=== PATIENT | female | born 1975 | race African-American/Black ===

== ENCOUNTER 2023-11-02 02:35 | Emergency (ER) | payer BC, OTHER ==
--- NOTE | 2023-11-02 03:40 | ED ---
Headache HPI - General Chief Complaint: Headache Stated Complaint: Headache, elevated BP Time Seen by Provider: 11/02/23 03:07 Limitations: no limitations - History of Present Illness Initial Comments: 48-year-old female presenting with chief complaint of headache. Headache has been ongoing for the last 4 days. Patient has history of migraines and states that this feels similar. Located primarily in the occipital region and over the sinuses. She denies any significant nasal congestion or discharge. She took Excedrin Migraine with little to no relief. No vision or hearing changes. No nausea or vomiting. No numbness, tingling, weakness. No neck pain. No injury or trauma. - Related Data Previous Rx's Medication Instructions Recorded Acetaminophen-Codeine 300-30mg 1 each PO Q6H PRN #20 tablet 03/24/14 [Tylenol #3] Ibuprofen [Motrin] 600 mg PO Q6HR PRN #30 tab 03/24/14 Ondansetron Odt [Zofran ODT] 4 mg PO Q8HR PRN #10 tab 03/24/14 Ibuprofen [Motrin] 600 mg PO Q6HR PRN #20 tab 12/19/14 Orphenadrine [Norflex] 100 mg PO Q12H #10 tablet.er 12/19/14 Allergies Allergy/AdvReac Type Severity Reaction Status Date / Time vancomycin AdvReac Nausea & Verified 11/02/23 03:05 Vomiting & Diarrhea Review of Systems ROS Statement: Those systems with pertinent positive or pertinent negative responses have been documented in the HPI. ROS Other: All systems not noted in ROS Statement are negative. Past Medical History Past Medical History: No Reported History History of Any Multi-Drug Resistant Organisms: None Reported Past Surgical History: Section, Hysterectomy Past Psychological History: No Psychological Hx Reported Smoking Status: Never smoker Past Alcohol Use History: None Reported Past Drug Use History: None Reported General Exam Limitations: no limitations General appearance: alert, in no apparent distress Head exam: Present: atraumatic, normocephalic Eye exam: Present: normal appearance, EOMI Neck exam: Present: normal inspection. Absent: meningismus Respiratory exam: Absent: respiratory distress Cardiovascular Exam: Present: regular rate Neurological exam: Present: alert, oriented X3 Expanded Eye Response: (4) open spontaneously Motor Response: (6) obeys commands Verbal Response: (5) oriented Hai Total: 15 Psychiatric exam: Present: normal affect, normal mood Skin exam: Present: warm, dry Course Vital Signs 11/02/23 03:02 Pulse Rate 78 Respiratory 20 Rate Blood Pressure 158/89 O2 Sat by Pulse 97 Oximetry Medical Decision Making - Medical Decision Making Was pt. sent in by a medical professional or institution (, [facility], [facility], urgent care, hospital, or usp...) When possible be specific @ -No Did you speak to anyone other than the patient for history (EMS, parent, family, police, friend...)? What history was obtained from this source @ -No Did you review nursing and triage notes (agree or disagree)? Why? @ -I reviewed and agree with nursing and triage notes Were old charts reviewed (outside hosp., previous admission, EMS record, old EKG, old radiological studies, urgent care reports/EKG's, usp records)? Report findings @ -No old charts were reviewed Differential Diagnosis (chest pain, altered mental status, abdominal pain women, abdominal pain men, vaginal bleeding, weakness, fever, dyspnea, syncope, headache, dizziness, GI bleed, back pain, seizure, CVA, palpatations, mental health, musculoskeletal)? @ -MDM Differential Headache: Migraine, tension, cluster, carbon monoxide, central venous thrombosis, pension karma temporal arteritis, acute closure glaucoma, intercranial hemorrhage, mastoiditis, sinusitis, head injury this is not meant to be an all-inclusive list. EKG interpreted by me (3pts min.). @ -As above X-rays interpreted by me (1pt min.). @ -None done CT interpreted by me (1pt min.). @ -None done U/S interpreted by me (1pt. min.). @ -None done What testing was considered but not performed or refused? (CT, X-rays, U/S, labs)? Why? @ -None What meds were considered but not given or refused? Why? @ -None Did you discuss the management of the patient with other professionals (professionals i.e. , [facility], [facility], lab, RT, psych nurse, social service manager, coil winder, teacher, unarmed security officer, employment evaluator/case manager)? Give summary @ -No Was smoking cessation discussed for >3mins.? @ -No Was critical care preformed (if so, how long)? @ -No Were there social determinants of health that impacted care today? How? (Homelessness, low income, unemployed, alcoholism, drug addiction, transportation, low edu. Level, literacy, decrease access to med. care, residential, rehab)? @ -No Was there de-escalation of care discussed even if they declined (Discuss DNR or withdrawal of care, Hospice)? DNR status @ -No What co-morbidities impacted this encounter? (DM, HTN, Smoking, COPD, CAD, Cancer, CVA, ARF, Chemo, Hep., AIDS, mental health diagnosis, sleep apnea, morbid obesity)? @ -None Was patient admitted / discharged? Hospital course, mention meds given and [facility] [place], prescriptions, significant lab abnormalities, going to OR and other pertinent info. @ -48-year-old female presenting with chief complaint of headache. Patient has history of migraines, this feels similar. History and physical exam are conducted. Patient is treated with migraine cocktail. On reassessment she reports significant improvement in her symptoms. Patient states that she was having some urinary frequency this evening, UA shows no evidence of infectious process or bleeding. 4 Plex swab is sent, patient would like to be discharged home and follow-up on results. Discharged. Follow-up with PCP. Report back to ER with any new or worsening symptoms. Discussed return parameters and answered all questions. Patient conveyed verbal understanding and agreed to the plan. I discussed this case in detail with my attending Dr. Ovalle Undiagnosed new problem with uncertain prognosis? @ -No Drug Therapy requiring intensive monitoring for toxicity (Heparin, Nitro, Insulin, Cardizem)? @ -No Were any procedures done? @ -No Diagnosis/symptom? @ -Headache Acute, or Chronic, or Acute on Chronic? @ -Acute Uncomplicated (without systemic symptoms) or Complicated (systemic symptoms)? @ -Uncomplicated Side effects of treatment? @ -No Exacerbation, Progression, or Severe Exacerbation? @ -No Poses a threat to life or bodily function? How? (Chest pain, [place], OR, pneumonia, PE, COPD, DKA, ARF, appy, cholecystitis, CVA, Diverticulitis, Homicidal, Suicidal, threat to staff... and all critical care pts) @ -Unlikely - Lab Data Lab Results 11/02/23 Range/Units 03:45 Urine Color Colorless Urine Appearance Clear (Clear) Urine pH 5.5 (5.0-8.0) Ur Specific [place] 1.010 (1.001-1.035) Urine Protein Negative (Negative) Urine Glucose (UA) Negative (Negative) Urine Ketones Negative (Negative) Urine Blood Negative (Negative) Urine Nitrite Negative (Negative) Urine Bilirubin Negative (Negative) Urine Urobilinogen <2.0 (<2.0) mg/dL Ur Leukocyte Esterase Negative (Negative) Disposition Clinical Impression: Headache Disposition: HOME SELF-CARE Condition: Good Instructions (If sedation given, give patient instructions): Acute Headache (ED) Additional Instructions: Follow-up with your PCP. Report back to ER with any new or worsening symptoms. Is patient prescribed a controlled substance at d/c from ED?: No Referrals: Gennaro Asif DO [Primary Care Provider] - 1-2 days Time of Disposition: 04:27
[2023-11-02] MEDS: KETOROLAC 15 MG/ML 1 ML VIAL IVP STA (03:42)
[2023-11-02] MEDS: DEXAMETHASONE SOD PHOSPHATE 10 MG/ML 1 ML VIAL IVP STA (03:43)
[2023-11-02] MEDS: SODIUM CHLORIDE 0.9% 1,000 ML IV STA (03:43)
[2023-11-02] MEDS: diphenhydrAMINE 50 MG/ML 1 ML VIAL IVP STA (03:43)
[2023-11-02 04:13] LABS: Appearance,Urine Clear (Clear); Bilirubin,Urine Negative (Negative); Blood,Urine Negative (Negative); Color,Urine Colorless; Glucose,Urine (UA) Negative (Negative); Ketones,Urine Negative (Negative); Leukocyte Esterase,Urine Negative (Negative); Nitrite,Urine Negative (Negative); PH, Urine 5.5 (5.0-8.0); Protein,Urine Negative (Negative); Urobilinogen,Urine <2.0 mg/dL (<2.0)
[2023-11-02 08:05] VITALS: BP 162/83; PULSE 67; RESP 18
== END 2023-11-02 06:07 | disposition home or self-care (01) ==
LOC: EC 02:35
DX: R51.9 Headache, unspecified (principal); Z88.1 Allergy status to other antibiotic agents
CPT/HCPCS: 99283; 96374; 96375; 96361; 81003; 81025; 87636; J1200; J1885

== ENCOUNTER → 2023-11-20 | Outpatient (CLI) | payer BC ==
--- NOTE | 2023-11-23 13:22 | MM ---
Reason for Exam: Screening (asymptomatic). Last mammogram was performed 9 year(s) and 11 month(s) ago. Patient History: Menarche at age 15. First Full-Term at age 27. Hysterectomy at age 38. Patient has history of breast feeding. Hormonal Contraceptives for 3 months. Risk Values: Shaunna 5 year model risk: 0.8%. NCI Lifetime model risk: 7.0%. Prior Study Comparison: 12/15/2013 Bilateral Screening Mammogram, [facility]. Tissue Density: The breasts are extremely dense, which lowers the sensitivity of mammography. Findings: Analyzed By CAD. There is no suspicious group of microcalcifications or new suspicious mass in either breast. Overall Assessment: Negative, BI-RAD 1 Management: Screening Mammogram of both breasts in 1 year. . Patient should continue monthly self-breast exams. A clinical breast exam by your physician is recommended on an annual basis. This exam should not preclude additional follow-up of suspicious palpable abnormalities. Note on Shaunna scores and lifetime risk: 1. A Shaunna score greater than 3% is considered moderate risk. If this is the case, consider specialist referral to assess eligibility for a risk reducing agent. 2. If overall lifetime risk for the development of breast cancer is 20% or higher, the patient may qualify for future screening with alternating mammogram and breast MRI. Electronically signed and approved by: Rm Bran M.D. Radiologis
== END | disposition home or self-care (01) ==
LOC: RADMAMWWP 15:58
PROVIDERS: ATTEND Obstetrics & Gynecology
DX: Z12.31 Encounter for screening mammogram for malignant neoplasm of breast (principal)
CPT/HCPCS: 77063; 77067

== ENCOUNTER 2024-08-14 09:21 | Emergency (ER) | payer BC ==
[2024-08-14 09:41] VITALS: RESP 22
--- NOTE | 2024-08-14 09:43 | ED ---
Recheck HPI - General Chief Complaint: Recheck/Abnormal Lab/Rx Stated Complaint: inhaled laundry soap Time Seen by Provider: 08/14/24 09:28 Source: patient, RN notes reviewed Mode of arrival: ambulatory Limitations: no limitations - History of Present Illness Initial Comments: This is a 49-year-old female who presents to the emergency department for conc erns of inhaling laundry soap. States that she uses powder laundry detergent and when she went to open her washing machine smelled the clothes to see if they were clean or not. She realized the load had not actually run, causing her to inhale the powder that was still on the clothing. She initially felt like she had burning in her nose, however this has since subsided. Denies any chest pain or shortness of breath. - Related Data Previous Rx's Medication Instructions Recorded Acetaminophen-Codeine 300-30mg 1 each PO Q6H PRN #20 tablet 03/24/14 [Tylenol #3] Ibuprofen [Motrin] 600 mg PO Q6HR PRN #30 tab 03/24/14 Ondansetron Odt [Zofran ODT] 4 mg PO Q8HR PRN #10 tab 03/24/14 Ibuprofen [Motrin] 600 mg PO Q6HR PRN #20 tab 12/19/14 Orphenadrine [Norflex] 100 mg PO Q12H #10 tablet.er 12/19/14 Allergies Allergy/AdvReac Type Severity Reaction Status Date / Time vancomycin AdvReac Nausea & Verified 08/14/24 09:24 Vomiting & Diarrhea Review of Systems ROS Statement: Those systems with pertinent positive or pertinent negative responses have been documented in the HPI. ROS Other: All systems not noted in ROS Statement are negative. Past Medical History Past Medical History: No Reported History History of Any Multi-Drug Resistant Organisms: None Reported Past Surgical History: Section, Hysterectomy Past Psychological History: No Psychological Hx Reported Smoking Status: Never smoker Past Alcohol Use History: None Reported Past Drug Use History: None Reported General Exam Limitations: no limitations General appearance: alert, in no apparent distress Head exam: Present: atraumatic, normocephalic, normal inspection ENT exam: Present: normal exam, normal oropharynx, mucous membranes moist Respiratory exam: Present: normal lung sounds bilaterally. Absent: respiratory distress, wheezes, rales, rhonchi, stridor Cardiovascular Exam: Present: regular rate, normal rhythm, normal heart sounds. Absent: systolic murmur, diastolic murmur, rubs, gallop, clicks Neurological exam: Present: alert, oriented X3, CN II-XII intact Psychiatric exam: Present: normal affect, normal mood Skin exam: Present: warm, dry, intact, normal color. Absent: rash Course Vital Signs 08/14/24 08/14/24 08/14/24 09:22 09:28 10:19 Temperature 98 F 98.1 F Pulse Rate 109 H 82 Respiratory 18 22 22 Rate Blood Pressure 170/83 146/80 O2 Sat by Pulse 97 99 Oximetry Medical Decision Making - Medical Decision Making This is a 49 year old female who presents to the emergency department for laundry detergent inhalation. Was pt. sent in by a medical professional or institution? @ -No Did you speak to anyone other than the patient for history? @ -No Did you review nursing and triage notes? @ -Yes, and I agree, it is accurate with regards to the patient's symptoms. Were old charts reviewed? @ -No Differential Diagnosis? @ -Nasal burn, nasal irritation, pharyngitis, sinusitis, this is not meant to be an all-inclusive list. EKG interpreted by me (3pts min.)? @ -Not obtained X-rays interpreted by me (1pt min.)? @ -Not obtained CT interpreted by me (1pt min.)? @ -Not obtained U/S interpreted by me (1pt. min.)? @ -Not obtained What testing was considered but not performed? (CT, X-rays, U/S, labs)? Why? @ -None What meds were considered but not given? Why? @ -None Did you discuss the management of the patient with other professionals? @ -No Did you reconcile home meds? @ -No Was smoking cessation discussed for >3mins.? @ -No Was critical care preformed (if so, how long)? @ -No Were there social determinants of health that impacted care today? How? (Homelessness, low income, unemployed, alcoholism, drug addiction, transportation, low edu. Level, literacy, decrease access to med. care, group home, rehab)? @ -No Was there de-escalation of care discussed even if they declined? (Discuss DNR or withdrawal of care, Hospice)? @ -No What co-morbidities impacted this encounter? (DM, HTN, Smoking, COPD, CAD, Cancer, CVA, Hep., AIDS, mental health diagnosis, sleep apnea, morbid obesity)? @ -None Was patient admitted / discharged? @ -Discharged. By the time the patient had arrived to the emergency department, her symptoms had largely subsided. She did bring her laundry detergent with her and the nursing staff contacted poison control, who advised that there are not any toxic or caustic ingredients in this and as long as she was feeling okay, she can be discharged home. States that her symptoms had improved. We discussed saline nasal spray or a Neti pot if she feels like she needs to rinse her sinuses out. Otherwise she can follow-up with her primary care provider on an outpatient basis. Patient discharged home in stable condition. Case discussed with ED attending Dr. Coker. Return precautions reviewed in depth, the patient is instructed to return to the emergency department with any new, worsening, or concerning symptoms. Patient verbalized understanding. Undiagnosed new problem with uncertain prognosis? @ -None Drug Therapy requiring intensive monitoring for toxicity (Heparin, Nitro, Insulin, Cardizem)? @ -None Were any procedures done? @ -None Diagnosis/symptom? @ -Accidental inhalation of a substance Acute, or Chronic, or Acute on Chronic? @ -Acute Uncomplicated (without systemic symptoms) or Complicated (systemic symptoms)? @ -Uncomplicated Side effects of treatment? @ -None Exacerbation, Progression, or Severe Exacerbation] @ -Not applicable Poses a threat to life or bodily function? @ -No Disposition Clinical Impression: Inhalation of substance Disposition: HOME SELF-CARE Additional Instructions: Return to the emergency department with any new, worsening, or concerning symptoms. If you continue to have discomfort, you can try using something like a Neti pot to rinse your sinuses. You could also try using saline nasal spray. Follow up with your primary care provider in 1-2 days. Is patient prescribed a controlled substance at d/c from ED?: No Referrals: Gennaro Asif DO [Primary Care Provider] - 1-2 days Time of Disposition: 10:06
[2024-08-14 10:29] VITALS: BP 146/80; PULSE 82; TEMP 98.1
== END 2024-08-14 10:24 | disposition home or self-care (01) ==
LOC: EC 09:21
DX: T55.1X1A Toxic effect of detergents, accidental (unintentional), initial encounter (principal); Z88.1 Allergy status to other antibiotic agents
CPT/HCPCS: 99283